=== PATIENT | male | born 2000 | race Caucasian/White ===

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

== ENCOUNTER → 2022-09-20 | Outpatient (CLI) | payer OTHER ==
[~2022-09-20] MED LIST: NAPR-885 PO; TYLE325T5 PO
== END ==
LOC: M RAD 14:16
PROVIDERS: ATTEND Physician Assistant
DX: R51.9 Headache, unspecified (principal); M54.2 Cervicalgia

== ENCOUNTER 2024-06-02 15:29 | Emergency (ER) | payer OTHER, SELFPAY ==
[~2024-06-02] VITALS: Ht 177.8 cm; Wt 71.2 kg
[2024-06-02 15:33] VITALS: BP 160/85; TEMP 98; O2SAT 98
== END 2024-06-02 17:38 | disposition home or self-care (01) ==
LOC: M ED 15:29
DX: S92.252A Displaced fracture of navicular [scaphoid] of left foot, initial encounter for closed fracture (principal); W23.0XXA Caught, crushed, jammed, or pinched between moving objects, initial encounter; F17.200 Nicotine dependence, unspecified, uncomplicated; Z88.1 Allergy status to other antibiotic agents; Y92.9 Unspecified place or not applicable; Y93.9 Activity, unspecified; Y99.8 Other external cause status

== ENCOUNTER → 2024-06-17 | Outpatient (CLI) | payer OTHER | LOC: M SOG 07:49 | PROVIDERS: ATTEND Physician Assistant | DX: S92.252A Displaced fracture of navicular [scaphoid] of left foot, initial encounter for closed fracture (principal); W18.30XA Fall on same level, unspecified, initial encounter; Y92.009 Unspecified place in unspecified non-institutional (private) residence as the place of occurrence of the external cause ==

== ENCOUNTER → 2024-07-14 | Outpatient (CLI) | payer OTHER | LOC: M SOG 07:52 | PROVIDERS: ATTEND Physician Assistant | DX: S92.252D Displaced fracture of navicular [scaphoid] of left foot, subsequent encounter for fracture with routine healing (principal) ==

== ENCOUNTER → 2024-07-17 | Outpatient (CLI) | payer OTHER | LOC: M SOG 07:55 | PROVIDERS: ATTEND Physician Assistant | DX: S92.252D Displaced fracture of navicular [scaphoid] of left foot, subsequent encounter for fracture with routine healing (principal) ==

== ENCOUNTER → 2024-09-24 | Outpatient (CLI) | payer OTHER | LOC: M RAD 07:40 | PROVIDERS: ATTEND Physician Assistant | DX: S92.252D Displaced fracture of navicular [scaphoid] of left foot, subsequent encounter for fracture with routine healing (principal) ==

== ENCOUNTER 2024-10-18 13:01 | Emergency (ER) | payer OTHER ==
[~2024-10-18] VITALS: Ht 177.8 cm; Wt 68.2 kg
[2024-10-18 13:32] LABS: KETONE, URINE AUTO RFX NEGATIVE (NEGATIVE); LEUKOCYTE ESTERASE UR AUTO RFX NEGATIVE (NEGATIVE); MUCUS, URINE RFX SMALL (NEGATIVE); NITRITE, URINE AUTO RFX NEGATIVE (NEGATIVE); RBC, URINE AUTO RFX 0 /HPF (0-3); SQUAM EPITHELIAL CELL UR AURFX 0 /HPF (0-6); WBC, URINE AUTO RFX 0 /HPF (0-3)
[2024-10-18 13:41] LABS: BASO # 0.1 10^3/uL (0.0-0.2); EOS # 0.1 10^3/uL (0.0-0.5); EOS % 2.5 % (0.0-3.0); HEMATOCRIT 44.6 % (42.0-52.0); HEMOGLOBIN 15.1 g/dl (13.5-17.5); LYMPH % 38.8 % (24.0-44.0); MEAN CORPUSCULAR HEMOGLOBIN 31.2 pg (27.0-33.0); MEAN CORPUSCULAR HGB CONC 33.9 g/dl (32.0-36.5); MEAN CORPUSCULAR VOLUME 92.1 fl (80.0-96.0); MONO # 0.6 10^3/uL (0.0-0.8); MONO % 11.2 % (2.0-8.0); NEUTROPHILS # 2.4 10^3/uL (1.5-8.5); NEUTROPHILS % 46.3 % (36.0-66.0); PLATELET COUNT, AUTOMATED 229 10^3/uL (150-450); RED BLOOD COUNT 4.84 10^6/uL (4.30-6.10); WHITE BLOOD COUNT 5.2 10^3/uL (4.0-10.0)
[2024-10-18 14:07] LABS: BLOOD UREA NITROGEN 8 MG/DL (9-23); CALCIUM LEVEL 8.8 MG/DL (8.5-10.1); CARBON DIOXIDE LEVEL 30 MMOL/L (20-31); CHLORIDE LEVEL 104 MMOL/L (98-107); GLOMERULAR FILTRATION RATE > 90.0 (>60); GLUCOSE, FASTING 115 MG/DL (60-100); POTASSIUM SERUM 4.5 MMOL/L (3.5-5.1); SODIUM LEVEL 139 MMOL/L (136-145)
[2024-10-18 14:10] LABS: THYROID STIMULATING HORMONE 0.197 uIU/ML (0.55-4.78)
[2024-10-18 14:11] LABS: HEMOGLOBIN A1c 4.4 % (4.0-6.0)
[2024-10-18 14:46] VITALS: BP 107/61; O2SAT 99
[2024-10-18 16:26] VITALS: TEMP 97.8
== END 2024-10-18 16:30 | disposition home or self-care (01) ==
LOC: M ED 13:01
DX: E86.0 Dehydration (principal); J45.909 Unspecified asthma, uncomplicated; Z88.2 Allergy status to sulfonamides

== ENCOUNTER 2024-10-22 07:42 | Emergency (ER) | payer OTHER ==
[~2024-10-22] VITALS: Ht 177.8 cm; Wt 70.6 kg
[2024-10-22 07:45] VITALS: BP 131/82; TEMP 97.7; O2SAT 100
[2024-10-22 08:50] LABS: KETONE, URINE AUTO RFX 1+ mg/dL (NEGATIVE); LEUKOCYTE ESTERASE UR AUTO RFX NEGATIVE (NEGATIVE); MUCUS, URINE RFX SMALL (NEGATIVE); NITRITE, URINE AUTO RFX NEGATIVE (NEGATIVE); RBC, URINE AUTO RFX 1 /HPF (0-3); SQUAM EPITHELIAL CELL UR AURFX 0 /HPF (0-6); WBC, URINE AUTO RFX 0 /HPF (0-3)
[2024-10-22 09:59] LABS: Trichomonas vaginalis (AMP) NOT DETECTED (NEGATIVE)
[2024-10-22 10:23] LABS: GC DNA AMPLIFICATION NEGATIVE (NEGATIVE)
== END 2024-10-22 10:27 | disposition home or self-care (01) ==
LOC: M ED 07:42
DX: N50.811 Right testicular pain (principal); Z88.2 Allergy status to sulfonamides

== ENCOUNTER 2024-10-24 10:14 | Emergency (ER) | payer OTHER ==
[~2024-10-24] VITALS: Ht 177.8 cm; Wt 69.8 kg
[2024-10-24 10:34] VITALS: BP 140/63; TEMP 98.8; O2SAT 97
[2024-10-24 13:01] LABS: BASO % 0.5 % (0.0-1.0); EOS # 0.1 10^3/uL (0.0-0.5); EOS % 0.8 % (0.0-3.0); HEMOGLOBIN 15.6 g/dl (13.5-17.5); LYMPH # 1.6 10^3/uL (1.5-5.0); LYMPH % 26.3 % (24.0-44.0); MEAN CORPUSCULAR HEMOGLOBIN 31.1 pg (27.0-33.0); MEAN CORPUSCULAR HGB CONC 33.9 g/dl (32.0-36.5); MEAN CORPUSCULAR VOLUME 91.6 fl (80.0-96.0); MONO # 0.5 10^3/uL (0.0-0.8); MONO % 8.6 % (2.0-8.0); NEUTROPHILS # 3.8 10^3/uL (1.5-8.5); NEUTROPHILS % 63.6 % (36.0-66.0); PLATELET COUNT, AUTOMATED 259 10^3/uL (150-450); RED BLOOD COUNT 5.02 10^6/uL (4.30-6.10)
[2024-10-24 13:06] LABS: KETONE, URINE AUTO RFX NEGATIVE (NEGATIVE); LEUKOCYTE ESTERASE UR AUTO RFX NEGATIVE (NEGATIVE); NITRITE, URINE AUTO RFX NEGATIVE (NEGATIVE); RBC, URINE AUTO RFX 1 /HPF (0-3); SQUAM EPITHELIAL CELL UR AURFX 0 /HPF (0-6); WBC, URINE AUTO RFX 0 /HPF (0-3)
[2024-10-24 13:27] LABS: BLOOD UREA NITROGEN 10 MG/DL (9-23); CALCIUM LEVEL 9.7 MG/DL (8.5-10.1); CARBON DIOXIDE LEVEL 31 MMOL/L (20-31); CHLORIDE LEVEL 107 MMOL/L (98-107); CREATININE FOR GFR 0.81 MG/DL (0.70-1.30); GLOMERULAR FILTRATION RATE > 90.0 (>60); GLUCOSE, FASTING 97 MG/DL (60-100); POTASSIUM SERUM 4.5 MMOL/L (3.5-5.1); SODIUM LEVEL 141 MMOL/L (136-145)
[2024-10-24] MEDS ORDERED: COLA100C5 PO (15:30)
[2024-10-24] MEDS ORDERED: GLYC1SUP38 PR (15:30)
[2024-10-25] MEDS ORDERED: MAGN500T12 (22:42)
== END 2024-10-24 16:16 | disposition home or self-care (01) ==
LOC: M ED 10:14
DX: K59.00 Constipation, unspecified (principal); Z88.2 Allergy status to sulfonamides; Z79.899 Other long term (current) drug therapy

== ENCOUNTER 2024-10-25 22:35 | Emergency (ER) | payer OTHER ==
[~2024-10-25] VITALS: Ht 177.8 cm; Wt 67.3 kg
[~2024-10-25 22:35] MED LIST changes: +COLA100C5 PO; +GLYC1SUP38 PR
[2024-10-25 22:40] VITALS: TEMP 98.9
[2024-10-25] MEDS ORDERED: MAGN500T12 (22:42)
[2024-10-26 01:30] VITALS: BP 119/76
[2024-10-26 02:20] VITALS: O2SAT 96
[2024-10-26] MEDS: MAGNESIUM CITRATE 300ML BTL PO ONE (02:47)
== END 2024-10-26 02:55 | disposition home or self-care (01) ==
LOC: M ED 22:35
DX: K59.00 Constipation, unspecified (principal); Z88.2 Allergy status to sulfonamides

== ENCOUNTER 2024-11-18 18:03 | Emergency (ER) | payer OTHER ==
[~2024-11-18] VITALS: Ht 177.8 cm; Wt 65.9 kg
[~2024-11-18 18:03] MED LIST changes: +MAGN500T12
[2024-11-18 18:09] VITALS: TEMP 97.8
[2024-11-18 19:05] LABS: BASO # 0.1 10^3/uL (0.0-0.2); BASO % 0.9 % (0.0-1.0); EOS # 0.1 10^3/uL (0.0-0.5); EOS % 2.5 % (0.0-3.0); HEMATOCRIT 46.1 % (42.0-52.0); LYMPH # 1.8 10^3/uL (1.5-5.0); LYMPH % 32.6 % (24.0-44.0); MEAN CORPUSCULAR HEMOGLOBIN 31.3 pg (27.0-33.0); MEAN CORPUSCULAR HGB CONC 34.7 g/dl (32.0-36.5); MEAN CORPUSCULAR VOLUME 90.2 fl (80.0-96.0); MONO # 0.4 10^3/uL (0.0-0.8); MONO % 7.3 % (2.0-8.0); NEUTROPHILS # 3.2 10^3/uL (1.5-8.5); NEUTROPHILS % 56.5 % (36.0-66.0); PLATELET COUNT, AUTOMATED 240 10^3/uL (150-450); RED BLOOD COUNT 5.11 10^6/uL (4.30-6.10); WHITE BLOOD COUNT 5.6 10^3/uL (4.0-10.0)
[2024-11-18 19:30] LABS: BLOOD UREA NITROGEN 15 MG/DL (9-23); CALCIUM LEVEL 9.8 MG/DL (8.5-10.1); CARBON DIOXIDE LEVEL 29 MMOL/L (20-31); CHLORIDE LEVEL 102 MMOL/L (98-107); CK-MB VALUE MASS < 1.0 NG/ML (<3.6); CREATININE FOR GFR 0.82 MG/DL (0.70-1.30); GLOMERULAR FILTRATION RATE > 90.0 (>60); GLUCOSE, FASTING 94 MG/DL (60-100); POTASSIUM SERUM 3.8 MMOL/L (3.5-5.1); SODIUM LEVEL 141 MMOL/L (136-145)
[2024-11-18 19:31] LABS: CPK CREATINE PHOSPHOKINASE 218 U/L (46-171); MB/CK RELATIVE INDEX 0.45 (< OR =4)
[2024-11-18] MEDS ORDERED: HYDR-3363 PO (20:46)
[2024-11-18 21:00] VITALS: BP 117/61; O2SAT 99
[2024-11-18 21:10] LABS: CK-MB VALUE MASS < 1.0 NG/ML (<3.6)
[2024-11-18 21:11] LABS: CPK CREATINE PHOSPHOKINASE 189 U/L (46-171); MB/CK RELATIVE INDEX 0.52 (< OR =4)
== END 2024-11-18 21:35 | disposition home or self-care (01) ==
LOC: M ED 18:03
DX: R07.89 Other chest pain (principal); F41.0 Panic disorder [episodic paroxysmal anxiety]; R00.1 Bradycardia, unspecified; J45.909 Unspecified asthma, uncomplicated; F17.290 Nicotine dependence, other tobacco product, uncomplicated; F12.10 Cannabis abuse, uncomplicated; Z79.899 Other long term (current) drug therapy